=== PATIENT | female | born 1950 | race Two or more races ===

== ENCOUNTER 2018-03-16 09:19 | Emergency (ER) | payer OTHER ==
[~2018-03-16] VITALS: Ht 160 cm; Wt 58.1 kg
[2018-03-16] MEDS ORDERED: COZAAR50 MG PO (09:51)
[2018-03-16] MEDS ORDERED: ALENDRONATE SOD70 MG PO (09:51)
[2018-03-16] MEDS ORDERED: VITAMIN D-32000 UNIT PO (09:51)
== END 2018-03-16 13:18 | disposition home or self-care (01) ==
LOC: ER 09:19
DX: M54.5 Low back pain (principal)

== ENCOUNTER 2023-12-26 10:19 | Emergency (ER) | payer OTHER ==
[~2023-12-26] VITALS: Ht 160 cm; Wt 59.9 kg
[~2023-12-26 10:19] MED LIST: ALENDRONATE SOD70 MG PO; COZAAR50 MG PO; VITAMIN D-32000 UNIT PO
[2023-12-26] MEDS ORDERED: KETOROLAC TROMETHAMINE 60 MG VIAL IM ONE ×2 (11:30→11:36)
== END 2023-12-26 12:54 ==
LOC: ER 10:20
DX: S82.092A Other fracture of left patella, initial encounter for closed fracture (principal); W19.XXXA Unspecified fall, initial encounter; Y93.89 Activity, other specified; Y92.098 Other place in other non-institutional residence as the place of occurrence of the external cause; Y99.8 Other external cause status; I10 Essential (primary) hypertension
CPT/HCPCS: 73560; 96372; 99283; J1885